=== PATIENT | male | born 1950 | race Hispanic/Latino ===

== ENCOUNTER 2017-06-13 00:03 | Emergency (ER) | payer MEDICARE ==
[~2017-06-13 00:03] MED LIST: DIPH25CA7 PO; ESOM40CA PO; LISI-613 PO; MECL-111 PO; ONDA4TAB10 PO; ONDA4TAB4 PO; TRAM1TAB PO; VIT B; ZOLP5TAB8 PO; [UNRECOGNIZED DRUG - OTHER]
[2017-06-13] MEDS ORDERED: ACETAMINOPHEN 325 MG TAB ONE (07:07)
== END 2017-06-13 07:04 | disposition home or self-care (01) ==
LOC: EDH 00:03
DX: S80.11XA Contusion of right lower leg, initial encounter (principal); S09.8XXA Other specified injuries of head, initial encounter; F10.129 Alcohol abuse with intoxication, unspecified; Z87.891 Personal history of nicotine dependence; Y08.89XA Assault by other specified means, initial encounter; Y93.89 Activity, other specified; Y92.098 Other place in other non-institutional residence as the place of occurrence of the external cause; Y99.8 Other external cause status
CPT/HCPCS: 36415; 70450; 73590; 99285; G0480 ×2

== ENCOUNTER 2017-06-26 21:43 | Emergency (ER) | payer MEDICARE | END 2017-06-26 23:21 | disposition home or self-care (01) | LOC: EDH 21:43 | DX: M79.671 Pain in right foot (principal); I10 Essential (primary) hypertension | CPT/HCPCS: 73620 ==

== ENCOUNTER 2017-07-03 23:11 | Emergency (ER) | payer MEDICARE ==
[2017-07-04] MEDS ORDERED: ACETAMINOPHEN 325 MG TAB ONE (00:22)
[2017-07-04] MEDS ORDERED: ONDANSETRON ODT 4 MG TAB ONE (00:59)
== END 2017-07-04 01:04 | disposition home or self-care (01) ==
LOC: EDH 23:11
DX: M25.552 Pain in left hip (principal); G89.29 Other chronic pain; I10 Essential (primary) hypertension; Z76.5 Malingerer [conscious simulation]

== ENCOUNTER 2017-08-23 14:15 | Emergency (ER) | payer MEDICARE ==
[2017-08-23 15:37] LABS: EOSINOPHILS % (AUTO) 1.4 % (0.0-8.0); HEMATOCRIT 30.1 % (42-54); LYMPHOCYTES % (AUTO) 29.7 % (21.0-51.0); MEAN CORPUSCULAR HEMOGLOBIN 21.5 pg (27.0-33.0); MEAN CORPUSCULAR HGB CONC 31.6 g/dL (32.0-36.0); MEAN CORPUSCULAR VOLUME 67.9 fL (79-99); MONOCYTES % (AUTO) 8.3 % (3.0-13.0); NEUTROPHILS % (AUTO) 59.6 % (40.0-77.0); PLATELET COUNT (AUTO) 294 K/uL (130-400); RED BLOOD CELL COUNT(AUTO) 4.43 MIL/uL (4.50-6.20); RED CELL DISTRIBUTION WIDTH 21.2 % (11.0-15.5); WHITE BLOOD COUNT (AUTO) 5.7 K/uL (4.8-10.8)
[2017-08-23 15:45] LABS: CREATININE 0.8 mg/dL (0.5-1.5); POTASSIUM 3.7 mmol/L (3.5-5.1)
[2017-08-23] MEDS ORDERED: ACETAMINOPHEN 325 MG TAB ONE (16:06)
== END 2017-08-23 16:17 | disposition home or self-care (01) ==
LOC: EDH 14:15
DX: M79.662 Pain in left lower leg (principal); I10 Essential (primary) hypertension; F10.20 Alcohol dependence, uncomplicated
CPT/HCPCS: 36415; 73590; 80048; 85025; 93971

== ENCOUNTER 2017-10-03 02:24 | Emergency (ER) | payer MEDICARE ==
[2017-10-03] MEDS ORDERED: SODIUM CHLORIDE 0.9% 1000ML 1,000 ML IV ONE (02:43)
[2017-10-03] MEDS ORDERED: ONDANSETRON ODT 4 MG TAB ONE (02:43)
[2017-10-03] MEDS ORDERED: THIAMINE HCL 100 MG/ML 2ML VIAL ONE (02:43)
[2017-10-03] MEDS ORDERED: M.V.I. IV [ADULT] 10 ML VIAL IV ONE (02:44)
[2017-10-03] MEDS ORDERED: TRAMADOL HCL 50 MG TABLET ONE (02:53)
== END 2017-10-03 03:30 | disposition home or self-care (01) ==
LOC: EDH 02:24
DX: F10.10 Alcohol abuse, uncomplicated (principal); G89.29 Other chronic pain; M79.604 Pain in right leg; I10 Essential (primary) hypertension; Z98.890 Other specified postprocedural states
CPT/HCPCS: J3411; J7030

== ENCOUNTER 2017-10-19 19:19 | Observation (INO) | payer MEDICARE ==
[~2017-10-19] VITALS: Ht 165.1 cm; Wt 53.5 kg
[2017-10-19] MEDS ORDERED: MECLIZINE HCL 25 MG TABLET ONE (20:28)
[2017-10-19 20:45] LABS: BASOPHILS % (AUTO) 0.4 % (0.0-5.0); HEMATOCRIT 36.7 % (42-54); LYMPHOCYTES % (AUTO) 5.3 % (21.0-51.0); MEAN CORPUSCULAR HEMOGLOBIN 23.1 pg (27.0-33.0); MEAN CORPUSCULAR HGB CONC 32.5 g/dL (32.0-36.0); MEAN CORPUSCULAR VOLUME 70.9 fL (79-99); MONOCYTES % (AUTO) 3.6 % (3.0-13.0); NEUTROPHILS % (AUTO) 90.7 % (40.0-77.0); PLATELET COUNT (AUTO) 361 K/uL (130-400); RED BLOOD CELL COUNT(AUTO) 5.18 MIL/uL (4.50-6.20); RED CELL DISTRIBUTION WIDTH 22.2 % (11.0-15.5); WHITE BLOOD COUNT (AUTO) 9.8 K/uL (4.8-10.8)
[2017-10-19 20:51] LABS: CREATININE 1.4 mg/dL (0.5-1.5); POTASSIUM 3.7 mmol/L (3.5-5.1)
[2017-10-19] MEDS ORDERED: SODIUM CHLORIDE 0.9% 1000ML 1,000 ML IV ONE (21:05)
[2017-10-19 21:19] LABS: CREATINE KINASE MB 1.8 ng/mL (0.5-3.6); CREATINE KINASE, TOTAL 84 U/L (21-232); MYOGLOBIN 71 ng/mL (10-92); TROPONIN I < 0.04 ng/mL (0.00-0.06)
[2017-10-19 21:57] LABS: APPEARANCE,URINE Turbid (CLEAR); BILIRUBIN,URINE Small (NEGATIVE); COLOR,URINE Dark Yellow (YELLOW); GLUCOSE, URINE (UA) TRACE mg/dL (NEGATIVE); KETONES,URINE Trace mg/dL (NEGATIVE); LEUKOCYTE ESTERASE ,URINE Negative (NEGATIVE); NITRATE,URINE Negative (NEGATIVE); OCCULT BLOOD,URINE Negative (NEGATIVE); PROTEIN,URINE POS 1+ (NEGATIVE)
[2017-10-19 22:59] LABS: BACTERIA,URINE None Seen /HPF (None Seen); HYALINE CASTS, URINE 26-50 /LPF (0-1 /LPF); MUCUS,URINE Moderate LPF (None Seen); RBC,URINE None Seen /HPF (0-1); SQUAMOUS EPITHELIAL CELL,UR Few /HPF (0-2); WBC,URINE None Seen /HPF (0-1)
[2017-10-19 23:00] LABS: COARSE GRANULAR CASTS,URINE 0-2 /LPF (None Seen)
[2017-10-20] VITALS (7 sets, daily range): BP systolic 134–192; BP diastolic 71–100
[2017-10-20] MEDS ORDERED: ACETAMINOPHEN 325 MG TAB PO PRN ×3 (00:30→20:15)
[2017-10-20] MEDS ORDERED: ONDANSETRON HCL MDV 20ML 2 MG/ML VIAL IVP PRN (00:45)
[2017-10-20] MEDS ORDERED: MECLIZINE HCL 25 MG TABLET PO SCH (02:15)
[2017-10-20] MEDS: SODIUM CHLORIDE 0.9% 1000ML 1,000 ML IV SCH (04:37)
[2017-10-20 06:09] LABS: HEMATOCRIT 31.3 % (42-54); MEAN CORPUSCULAR HEMOGLOBIN 22.8 pg (27.0-33.0); MEAN CORPUSCULAR HGB CONC 32.2 g/dL (32.0-36.0); MEAN CORPUSCULAR VOLUME 70.9 fL (79-99); PLATELET COUNT (AUTO) 281 K/uL (130-400); RED BLOOD CELL COUNT(AUTO) 4.42 MIL/uL (4.50-6.20); RED CELL DISTRIBUTION WIDTH 21.3 % (11.0-15.5)
[2017-10-20 06:21] LABS: HEMOGLOBIN A1C 5.4 % (4.0-6.0)
[2017-10-20 06:26] LABS: ALBUMIN 3.1 g/dL (3.5-5.0); BILIRUBIN,DIRECT 0.2 mg/dL (0.0-0.3); BILIRUBIN,TOTAL 0.8 mg/dL (0.2-1.0); CREATININE 0.9 mg/dL (0.5-1.5); POTASSIUM 3.6 mmol/L (3.5-5.1); TOTAL PROTEIN, SERUM 6.7 g/dL (6.0-8.3)
[2017-10-20] MEDS: ENOXAPARIN SODIUM 40 MG/0.4 ML SYRINGE SQ SCH (11:35)
[2017-10-20] MEDS: FAMOTIDINE 20MG TAB 20 MG TAB PO SCH ×2 (11:35→20:42)
[2017-10-20] MEDS ORDERED: ONDANSETRON HCL 4 MG/2 ML VIAL IVP PRN (20:15)
[2017-10-20] MEDS ORDERED: MIDODRINE HCL 5 MG TABLET PO SCH (21:00)
[2017-10-21 00:05] VITALS: BP 144/78
[2017-10-21] MEDS: SODIUM CHLORIDE 0.9% 1000ML 1,000 ML IV SCH (00:27)
[2017-10-21 04:00] VITALS: BP 156/82
[2017-10-21 05:57] LABS: BASOPHILS % (AUTO) 1.9 % (0.0-5.0); EOSINOPHILS % (AUTO) 1.1 % (0.0-8.0); HEMATOCRIT 29.6 % (42-54); LYMPHOCYTES % (AUTO) 31.3 % (21.0-51.0); MEAN CORPUSCULAR HEMOGLOBIN 23.7 pg (27.0-33.0); MEAN CORPUSCULAR HGB CONC 33.1 g/dL (32.0-36.0); MEAN CORPUSCULAR VOLUME 71.6 fL (79-99); MONOCYTES % (AUTO) 9.1 % (3.0-13.0); NEUTROPHILS % (AUTO) 56.6 % (40.0-77.0); NUCLEATED RED BLOOD CELLS 0.1 % (0.0-0.19); PLATELET COUNT (AUTO) 268 K/uL (130-400); RED BLOOD CELL COUNT(AUTO) 4.14 MIL/uL (4.50-6.20); WHITE BLOOD COUNT (AUTO) 5.5 K/uL (4.8-10.8)
[2017-10-21 06:08] LABS: CREATININE 0.9 mg/dL (0.5-1.5); POTASSIUM 4.2 mmol/L (3.5-5.1)
[2017-10-21 07:30] VITALS: BP 163/75
[2017-10-21] MEDS: FAMOTIDINE 20MG TAB 20 MG TAB PO SCH (09:26)
[2017-10-21] MEDS: ENOXAPARIN SODIUM 40 MG/0.4 ML SYRINGE SQ SCH (09:27)
== END 2017-10-21 12:25 | disposition home or self-care (01) ==
LOC: EDH 19:19 → EDHIP 19:20 → 3BH 10-20 03:22
PROVIDERS: ADMIT Internal Medicine Nephrology; ATTEND Internal Medicine Nephrology
DX: I95.1 Orthostatic hypotension (principal); R42 Dizziness and giddiness; I10 Essential (primary) hypertension; K25.9 Gastric ulcer, unspecified as acute or chronic, without hemorrhage or perforation; I44.7 Left bundle-branch block, unspecified; F10.20 Alcohol dependence, uncomplicated; W18.39XA Other fall on same level, initial encounter; Y93.89 Activity, other specified; Y92.89 Other specified places as the place of occurrence of the external cause; Y99.8 Other external cause status; Z87.11 Personal history of peptic ulcer disease; Z79.01 Long term (current) use of anticoagulants
CPT/HCPCS: 36415 ×3; 70450; 80048 ×3; 80061; 80076; 81001; 82550; 82553; 83036; 83874; 84484; 85025 ×2; 85027; 93005 ×2; 93306; 96360; 96361 ×2; 96372 ×2; 99285; G0378 ×41; G0480; J1650 ×2; J7030 ×3

== ENCOUNTER 2017-10-23 22:51 | Emergency (ER) | payer MEDICARE | END 2017-10-24 07:03 | disposition home or self-care (01) | LOC: EDH 22:51 | DX: S00.83XA Contusion of other part of head, initial encounter (principal); F10.10 Alcohol abuse, uncomplicated; I10 Essential (primary) hypertension; W18.39XA Other fall on same level, initial encounter; Y93.89 Activity, other specified; Y92.098 Other place in other non-institutional residence as the place of occurrence of the external cause; Y99.8 Other external cause status | CPT/HCPCS: 70450; 72125 ==

== ENCOUNTER 2017-10-24 07:07 | Emergency (ER) | payer MEDICARE ==
[2017-10-24] MEDS ORDERED: IBUPROFEN 600 MG TABLET ONE (07:22)
== END 2017-10-24 07:54 | disposition home or self-care (01) ==
LOC: EDH 07:07
DX: G89.29 Other chronic pain (principal); I10 Essential (primary) hypertension; Z72.0 Tobacco use; M25.50 Pain in unspecified joint
CPT/HCPCS: 99282

== ENCOUNTER 2018-02-24 19:51 | Emergency (ER) | payer MEDICARE ==
[2018-02-24] MEDS ORDERED: HYDROCODONE/ACETAMINOPHEN 5/325 MG TAB ONE (20:11)
[2018-02-24] MEDS ORDERED: ONDANSETRON ODT 4 MG TAB ONE (20:44)
== END 2018-02-25 06:36 | disposition home or self-care (01) ==
LOC: EDH 19:51
DX: S82.035A Nondisplaced transverse fracture of left patella, initial encounter for closed fracture (principal); I10 Essential (primary) hypertension; F10.20 Alcohol dependence, uncomplicated; W18.39XA Other fall on same level, initial encounter; Y93.01 Activity, walking, marching and hiking; Y92.89 Other specified places as the place of occurrence of the external cause; Y99.8 Other external cause status
CPT/HCPCS: 29505; 73562; 73700

== ENCOUNTER 2018-03-11 10:05 | Emergency (ER) | payer MEDICARE ==
[2018-03-11 11:11] LABS: BASOPHILS % (AUTO) 0.4 % (0.0-5.0); EOSINOPHILS % (AUTO) 0.3 % (0.0-8.0); HEMATOCRIT 31.1 % (42-54); LYMPHOCYTES % (AUTO) 15.8 % (21.0-51.0); MEAN CORPUSCULAR HEMOGLOBIN 24.2 pg (27.0-33.0); MEAN CORPUSCULAR HGB CONC 31.8 g/dL (32.0-36.0); MEAN CORPUSCULAR VOLUME 76.2 fL (79-99); MONOCYTES % (AUTO) 6.7 % (3.0-13.0); NEUTROPHILS % (AUTO) 76.8 % (40.0-77.0); PLATELET COUNT (AUTO) 208 K/uL (130-400); RED BLOOD CELL COUNT(AUTO) 4.07 MIL/uL (4.50-6.20); RED CELL DISTRIBUTION WIDTH 20.6 % (11.0-15.5); WHITE BLOOD COUNT (AUTO) 6.1 K/uL (4.8-10.8)
[2018-03-11 11:17] LABS: CREATININE 0.9 mg/dL (0.5-1.5); POTASSIUM 3.6 mmol/L (3.5-5.1)
[2018-03-11 11:22] LABS: BILIRUBIN,TOTAL 0.5 mg/dL (0.2-1.0); TOTAL PROTEIN, SERUM 7.7 g/dL (6.0-8.3)
== END 2018-03-11 12:02 | disposition home or self-care (01) ==
LOC: EDH 10:05
DX: R53.83 Other fatigue (principal); R53.81 Other malaise; R11.10 Vomiting, unspecified; R06.02 Shortness of breath; F10.20 Alcohol dependence, uncomplicated; I10 Essential (primary) hypertension
CPT/HCPCS: 36415; 71045; 80053; 85025

== ENCOUNTER 2018-03-12 07:18 | Emergency (ER) | payer MEDICARE ==
[2018-03-12] MEDS ORDERED: ONDANSETRON ODT 4 MG TAB ONE (09:17)
== END 2018-03-12 09:23 | disposition home or self-care (01) ==
LOC: EDH 07:18
DX: R42 Dizziness and giddiness (principal)

== ENCOUNTER 2018-06-10 20:18 | Emergency (ER) | payer MEDICARE ==
[2018-06-10] MEDS ORDERED: KETOROLAC TROMETHAMINE 30MG/ML ONE (20:48)
[2018-06-10] MEDS ORDERED: ONDANSETRON HCL 4 MG/2 ML VIAL ONE (22:39)
== END 2018-06-10 23:37 | disposition home or self-care (01) ==
LOC: EDH 20:18
DX: S80.02XA Contusion of left knee, initial encounter (principal); S70.02XA Contusion of left hip, initial encounter; I10 Essential (primary) hypertension; Z98.890 Other specified postprocedural states; V02.90XA Pedestrian on foot injured in collision with two- or three-wheeled motor vehicle, unspecified whether traffic or nontraffic accident, initial encounter; Y93.89 Activity, other specified; Y92.410 Unspecified street and highway as the place of occurrence of the external cause; Y99.8 Other external cause status
CPT/HCPCS: 70450; 71250; 73562; 74176; 96374; 96375; 99285; J1885; J2405

== ENCOUNTER 2018-07-17 23:39 | Observation (INO) | payer MEDICARE ==
[~2018-07-17] VITALS: Ht 165.1 cm; Wt 52.2 kg
[2018-07-17] MEDS ORDERED: ONDANSETRON HCL 4 MG/2 ML VIAL ONE (23:45)
[2018-07-18 00:01] LABS: BASOPHILS % (AUTO) 0.9 % (0.0-5.0); EOSINOPHILS % (AUTO) 0.8 % (0.0-8.0); LYMPHOCYTES % (AUTO) 33.5 % (21.0-51.0); MEAN CORPUSCULAR HEMOGLOBIN 26.4 pg (27.0-33.0); MEAN CORPUSCULAR HGB CONC 32.2 g/dL (32.0-36.0); MEAN CORPUSCULAR VOLUME 81.9 fL (79-99); MONOCYTES % (AUTO) 7.4 % (3.0-13.0); NEUTROPHILS % (AUTO) 57.4 % (40.0-77.0); PLATELET COUNT (AUTO) 265 K/uL (130-400); RED BLOOD CELL COUNT(AUTO) 5.01 MIL/uL (4.50-6.20); RED CELL DISTRIBUTION WIDTH 16.8 % (11.0-15.5); WHITE BLOOD COUNT (AUTO) 7.2 K/uL (4.8-10.8)
[2018-07-18 00:20] LABS: INR 0.91 (0.85-1.15); PROTHROMBIN TIME 9.6 SEC (9.6-11.6)
[2018-07-18 00:28] LABS: CREATININE 0.8 mg/dL (0.5-1.5); POTASSIUM 4.6 mmol/L (3.5-5.1)
[2018-07-18 00:33] LABS: ALBUMIN 4.2 g/dL (3.5-5.0); BILIRUBIN,TOTAL 0.5 mg/dL (0.2-1.0); TOTAL PROTEIN, SERUM 8.2 g/dL (6.0-8.3)
[2018-07-18] MEDS ORDERED: THIAMINE HCL 100 MG/ML 2ML VIAL ONE (00:35)
[2018-07-18] MEDS ORDERED: SODIUM CHLORIDE 0.9% 1000ML 1,000 ML IV ONE (00:35)
[2018-07-18] MEDS ORDERED: OCTREOTIDE ACETATE 200 MCG/ML 5 ML VIAL ONE (00:37)
[2018-07-18] MEDS ORDERED: LACTATED RINGERS 1000ML 1,000 ML IV ONE ×2 (03:50→09:01)
[2018-07-18 06:06] LABS: HEMATOCRIT 35.4 % (42-54)
[2018-07-18] MEDS: LACTATED RINGERS 1000ML 1,000 ML IV SCH ×2 (06:15→20:14)
[2018-07-18] MEDS ORDERED: PANTOPRAZOLE SODIUM 80 MG in NS 100ML IVP SCH (06:15)
[2018-07-18] MEDS ORDERED: METOPROLOL TARTRATE 25 MG TAB ONE (08:08)
[2018-07-18] MEDS ORDERED: HYDROCHLOROTHIAZIDE 25 MG TABLET ONE (08:08)
[2018-07-18] MEDS ORDERED: ASPIRIN 325 MG TABLET ONE (08:08)
[2018-07-18] MEDS ORDERED: LOSARTAN 50 MG TABLET ONE (08:09)
[2018-07-18] MEDS ORDERED: FAMOTIDINE/PF 20 MG/2 ML VIAL IV ONE (08:09)
--- NOTE | 2018-07-18 09:43 | NUR ---
FARHAN Vernon met with pt who states he lives with [place] [phone]. Pt states he is independent, rides bike everywhere, has provider daily, but does not know what agency or # hours he gets. pt has walker and shower chair, no HH. Pt plans to return home at [place] Addendum: 07/18/18 at 0946 by GRANT VARELA Amended: Links added.
[2018-07-18] MEDS ORDERED: LABETALOL 20 MG/4 ML DISP.SYRIN IV PRN (12:45)
[2018-07-18] MEDS: LISINOPRIL 10 MG TABLET PO SCH (12:45)
[2018-07-18 13:13] LABS: HEMATOCRIT 40.4 % (42-54); MEAN CORPUSCULAR HEMOGLOBIN 26.6 pg (27.0-33.0); MEAN CORPUSCULAR HGB CONC 32.1 g/dL (32.0-36.0); NUCLEATED RED BLOOD CELLS 0.1 % (0.0-0.19); PLATELET COUNT (AUTO) 255 K/uL (130-400); RED BLOOD CELL COUNT(AUTO) 4.86 MIL/uL (4.50-6.20); RED CELL DISTRIBUTION WIDTH 17.1 % (11.0-15.5); WHITE BLOOD COUNT (AUTO) 5.9 K/uL (4.8-10.8)
[2018-07-18 13:21] LABS: CREATININE 0.9 mg/dL (0.5-1.5); POTASSIUM 4.1 mmol/L (3.5-5.1)
[2018-07-18] MEDS ORDERED: LISINOPRIL 5 MG TABLET ONE (14:14)
[2018-07-18] MEDS ORDERED: LABETALOL 20 MG/4 ML DISP.SYRIN IV ONE (15:37)
[2018-07-18] MEDS ORDERED: HYDRALAZINE HCL 20 MG/ML VIAL ONE (17:54)
[2018-07-18 19:48] VITALS: BP 165/83
[2018-07-18 23:00] VITALS: BP 166/78
--- NOTE | 2018-07-19 00:35 | NUR ---
HEART RATE LOW Tele monitor called to report that patient's heart rate is in the 30's. Patient resting and sleeping in bed. No distress or shortness of breath. Patient states no pain or chest pain at this time; patient says he is feeling fine. Asked patient if he has heart problems and states no. Current vital signs are: BP= 166/78, HR= 47, R= 16, O2Sat= 97% in room air, and Temp.= 97.6 F. Called MD vocational education professional; Darshana Mcbride NP returned page. Informed CHILD AND FAMILY THERAPIST of patient's heart rate in the 30s but having elevated blood pressures. Reported patient's current vital signs and what was given in ER. Obtained orders for patient to be on C-Pap and to discontinue the prn medication labetalol. Will follow orders and continue to monitor patient.
[2018-07-19 03:00] VITALS: BP 166/86
[2018-07-19 05:37] LABS: MEAN CORPUSCULAR HEMOGLOBIN 26.9 pg (27.0-33.0); MEAN CORPUSCULAR HGB CONC 32.7 g/dL (32.0-36.0); MEAN CORPUSCULAR VOLUME 82.4 fL (79-99); PLATELET COUNT (AUTO) 243 K/uL (130-400); RED BLOOD CELL COUNT(AUTO) 4.25 MIL/uL (4.50-6.20); RED CELL DISTRIBUTION WIDTH 17.2 % (11.0-15.5); WHITE BLOOD COUNT (AUTO) 4.9 K/uL (4.8-10.8)
[2018-07-19 08:00] VITALS: BP 168/96
[2018-07-19] MEDS: LISINOPRIL 10 MG TABLET PO SCH (08:56)
[2018-07-19] MEDS ORDERED: PANTOPRAZOLE SODIUM 40 MG TABLET.DR PO SCH (09:00)
--- NOTE | 2018-07-19 10:00 | NUR ---
HEART RATE PATIENT HAS BEEN IN THE UPPER 30'S AND LOW 40'S THROUGHOUT THE MORNING, TELE MONITOR REPORTS JUNCTIONAL RHYTHM AND SINUS BRADYCARDIA. MD IS AWARE OF PATIENT STATUS.
[2018-07-19 10:58] LABS: HEMATOCRIT 35.6 % (42-54)
[2018-07-19 11:10] LABS: ABG BASE EXCESS 2.2 mmol/L (-2.0-3.0); ABG HCO3 26.7 mmol/L (21.0-28.0); ABG OXYGEN SATURATION 97.8 % (95.0-99.0); ABG PCO2 41 mmHg (35-48)
[2018-07-19 12:00] VITALS: BP 123/74
--- NOTE | 2018-07-19 13:35 | NUR ---
BENCHMARK ANGELO CARMICHAEL PA-C IN TO SEE PATIENT. NEW ORDERS RECEIVED.
[2018-07-19 16:00] VITALS: BP 154/73
--- NOTE | 2018-07-19 18:15 | NUR ---
AMA PATIENT HAS DECIDED TO GO HOME AGAINST MEDICAL ADVICE. HE STATES THAT HE HAS BEEN HERE TOO LONG AND CANNOT PAY HIS BILL. HE WAS ENCOURAGED TO STAY UNTIL HE WAS SEEN BY HIS ADMITTING MD TOMORROW MORNING, BUT HE INSISTED ON LEAVING. ALL RISKS WERE EXPLAINED INCLUDING THE RISK OF . DR. AL WAS NOTIFIED. IV WAS REMOVED WITH TIP INTACT. DIRECT PRESSURE WAS APPLIED UNTIL BLEEDING CONTROLLED THEN SITE WAS COVERED WITH GAUZE AND SECURED WITH TAPE.
== END 2018-07-19 19:30 | disposition left against medical advice (07) ==
LOC: EDH 23:39 → EDHIP 07-18 02:00 → 3AH 07-18 19:26
PROVIDERS: ADMIT Internal Medicine Critical Care Medicine; ATTEND Internal Medicine Critical Care Medicine
DX: K92.0 Hematemesis (principal); I10 Essential (primary) hypertension; R00.1 Bradycardia, unspecified; I44.7 Left bundle-branch block, unspecified; F10.10 Alcohol abuse, uncomplicated; Z79.899 Other long term (current) drug therapy; Z96.659 Presence of unspecified artificial knee joint
CPT/HCPCS: 36415 ×3; 36600; 71045; 80048; 80053; 82803; 84484; 85014 ×3; 85018 ×3; 85025; 85027 ×2; 85610; 85730; 86850; 86900; 86901; 93005; 94660; 96360; 96361 ×2; 99291; G0378 ×41; J0360; J2354; J2405; J3411; J3490; J7030; J7120 ×5

== ENCOUNTER 2018-08-22 22:43 | Emergency (ER) | payer MEDICARE ==
[2018-08-22] MEDS ORDERED: THIAMINE HCL 100 MG/ML 2ML VIAL ONE (23:17)
[2018-08-22] MEDS ORDERED: ONDANSETRON HCL 4 MG/2 ML VIAL ONE (23:17)
[2018-08-22 23:20] LABS: APPEARANCE,URINE Clear (CLEAR); BILIRUBIN,URINE Negative (NEGATIVE); COLOR,URINE Yellow (YELLOW); GLUCOSE, URINE (UA) Negative (NEGATIVE); KETONES,URINE Negative (NEGATIVE); LEUKOCYTE ESTERASE ,URINE Negative (NEGATIVE); NITRATE,URINE Negative (NEGATIVE); OCCULT BLOOD,URINE Negative (NEGATIVE); PROTEIN,URINE Negative (NEGATIVE); UROBILINOGEN,URINE 0.2 mg/dL (0.2-1.0)
[2018-08-22 23:22] LABS: EOSINOPHILS % (AUTO) 0.5 % (0.0-8.0); HEMATOCRIT 38.6 % (42-54); LYMPHOCYTES % (AUTO) 26.2 % (21.0-51.0); MEAN CORPUSCULAR HGB CONC 32.3 g/dL (32.0-36.0); MEAN CORPUSCULAR VOLUME 83.7 fL (79-99); MONOCYTES % (AUTO) 6.1 % (3.0-13.0); NEUTROPHILS % (AUTO) 66.2 % (40.0-77.0); PLATELET COUNT (AUTO) 262 K/uL (130-400); RED CELL DISTRIBUTION WIDTH 19.2 % (11.0-15.5); WHITE BLOOD COUNT (AUTO) 6.9 K/uL (4.8-10.8)
[2018-08-22 23:33] LABS: CREATININE 0.9 mg/dL (0.5-1.5); POTASSIUM 3.5 mmol/L (3.5-5.1)
[2018-08-22 23:34] LABS: INR 0.92 (0.85-1.15); PARTIAL THROMBOPLASTIN TIME 25.5 SEC (26.3-35.5); PROTHROMBIN TIME 9.7 SEC (9.6-11.6)
[2018-08-22 23:37] LABS: ALBUMIN 4.1 g/dL (3.5-5.0); BILIRUBIN,TOTAL 0.5 mg/dL (0.2-1.0); TOTAL PROTEIN, SERUM 8.2 g/dL (6.0-8.3)
[2018-08-22 23:38] LABS: AMYLASE 93 U/L (25-115); LIPASE 312 U/L (114-286)
== END 2018-08-23 05:56 | disposition home or self-care (01) ==
LOC: EDH 22:43
DX: S50.312A Abrasion of left elbow, initial encounter (principal); K85.90 Acute pancreatitis without necrosis or infection, unspecified; F10.10 Alcohol abuse, uncomplicated; I10 Essential (primary) hypertension; Z98.890 Other specified postprocedural states; V19.9XXA Pedal cyclist (driver) (passenger) injured in unspecified traffic accident, initial encounter; Y93.89 Activity, other specified; Y92.89 Other specified places as the place of occurrence of the external cause; Y99.8 Other external cause status
CPT/HCPCS: 36415; 71045; 73070; 80053; 81003; 82150; 82550; 83690; 84484; 85025; 85610; 85730; 93005; 96365; 96375; 99285; J2405; J3411

== ENCOUNTER 2018-09-02 23:29 | Emergency (ER) | payer MEDICARE ==
[2018-09-03] MEDS ORDERED: ONDANSETRON HCL 4 MG/2 ML VIAL ONE (00:05)
== END 2018-09-03 02:09 | disposition home or self-care (01) ==
LOC: EDH 23:29
DX: S06.0X9A Concussion with loss of consciousness of unspecified duration, initial encounter (principal); S80.02XA Contusion of left knee, initial encounter; I10 Essential (primary) hypertension; W18.39XA Other fall on same level, initial encounter; Y93.89 Activity, other specified; Y92.89 Other specified places as the place of occurrence of the external cause; Y99.8 Other external cause status
CPT/HCPCS: 70450; 73562; 73590; 73630; 99284; J2405

== ENCOUNTER 2018-09-11 05:46 | Emergency (ER) | payer MEDICARE ==
[2018-09-11 07:35] LABS: BASOPHILS % (AUTO) 0.9 % (0.0-5.0); EOSINOPHILS % (AUTO) 0.6 % (0.0-8.0); HEMATOCRIT 38.5 % (42-54); LYMPHOCYTES % (AUTO) 27.7 % (21.0-51.0); MEAN CORPUSCULAR HGB CONC 32.1 g/dL (32.0-36.0); MEAN CORPUSCULAR VOLUME 83.9 fL (79-99); MONOCYTES % (AUTO) 7.6 % (3.0-13.0); NEUTROPHILS % (AUTO) 63.2 % (40.0-77.0); NUCLEATED RED BLOOD CELLS 0.1 % (0.0-0.19); PLATELET COUNT (AUTO) 262 K/uL (130-400); RED BLOOD CELL COUNT(AUTO) 4.58 MIL/uL (4.50-6.20); RED CELL DISTRIBUTION WIDTH 18.8 % (11.0-15.5); WHITE BLOOD COUNT (AUTO) 4.8 K/uL (4.8-10.8)
[2018-09-11 07:49] LABS: CREATININE 0.9 mg/dL (0.5-1.5); POTASSIUM 3.5 mmol/L (3.5-5.1)
[2018-09-11 07:54] LABS: ALBUMIN 3.8 g/dL (3.5-5.0); BILIRUBIN,TOTAL 0.3 mg/dL (0.2-1.0); INR 0.93 (0.85-1.15); PARTIAL THROMBOPLASTIN TIME 24.7 SEC (26.3-35.5); PROTHROMBIN TIME 9.8 SEC (9.6-11.6); TOTAL PROTEIN, SERUM 7.8 g/dL (6.0-8.3)
== END 2018-09-11 13:29 | disposition home or self-care (01) ==
LOC: EDH 05:46
DX: R07.89 Other chest pain (principal); I10 Essential (primary) hypertension; Z72.0 Tobacco use
CPT/HCPCS: 36415; 71045; 80053; 84484; 85025; 85610; 85730; 93005; 99285; G0480

== ENCOUNTER 2018-09-22 04:28 | Emergency (ER) | payer MEDICARE ==
[2018-09-22] MEDS ORDERED: ACETAMINOPHEN 325 MG TAB ONE (05:09)
[2018-09-22 05:29] LABS: BASOPHILS % (AUTO) 0.5 % (0.0-5.0); EOSINOPHILS % (AUTO) 0.2 % (0.0-8.0); HEMATOCRIT 37.1 % (42-54); LYMPHOCYTES % (AUTO) 11.2 % (21.0-51.0); MEAN CORPUSCULAR HEMOGLOBIN 27.3 pg (27.0-33.0); MEAN CORPUSCULAR HGB CONC 32.6 g/dL (32.0-36.0); MEAN CORPUSCULAR VOLUME 83.8 fL (79-99); NEUTROPHILS % (AUTO) 80.1 % (40.0-77.0); PLATELET COUNT (AUTO) 220 K/uL (130-400); RED BLOOD CELL COUNT(AUTO) 4.42 MIL/uL (4.50-6.20); RED CELL DISTRIBUTION WIDTH 17.9 % (11.0-15.5); WHITE BLOOD COUNT (AUTO) 10.6 K/uL (4.8-10.8)
[2018-09-22 05:36] LABS: CREATININE 0.8 mg/dL (0.5-1.5); POTASSIUM 3.6 mmol/L (3.5-5.1)
== END 2018-09-22 07:08 | disposition home or self-care (01) ==
LOC: EDH 04:28
DX: S42.022D Displaced fracture of shaft of left clavicle, subsequent encounter for fracture with routine healing (principal); X58.XXXD Exposure to other specified factors, subsequent encounter; I10 Essential (primary) hypertension; F10.20 Alcohol dependence, uncomplicated; Y90.9 Presence of alcohol in blood, level not specified; Z72.0 Tobacco use
CPT/HCPCS: 36415; 73000; 73070; 80048; 85025

== ENCOUNTER 2019-02-03 21:36 | Emergency (ER) | payer MEDICARE | END 2019-02-03 22:27 | disposition home or self-care (01) | LOC: EDH 21:36 | DX: G89.29 Other chronic pain (principal); M54.2 Cervicalgia; I10 Essential (primary) hypertension; F10.20 Alcohol dependence, uncomplicated ==

== ENCOUNTER 2019-02-22 22:03 | Emergency (ER) | payer MEDICARE ==
[2019-02-22] MEDS ORDERED: SODIUM CHLORIDE 0.9% 1000ML 2,000 ML IV ONE (23:32)
[2019-02-22 23:43] LABS: AMPHET/METH SCREEN,URINE NEGATIVE (NEGATIVE); BARBITURATE SCREEN, URINE NEGATIVE (NEGATIVE); BENZODIAZEPINES SCREEN,URINE NEGATIVE (NEGATIVE); CANNABINOID SCREEN,URINE NEGATIVE (NEGATIVE); COCAINE SCREEN,URINE NEGATIVE (NEGATIVE); OPIATE SCREEN,URINE NEGATIVE (NEGATIVE); PHENCYCLIDINE SCREEN,URINE NEGATIVE (NEGATIVE)
== END 2019-02-23 00:27 | disposition home or self-care (01) ==
LOC: EDH 22:03
DX: F10.229 Alcohol dependence with intoxication, unspecified (principal); M54.2 Cervicalgia; R51 Headache; I10 Essential (primary) hypertension
CPT/HCPCS: 36415; 70450; 80305; 82948; 99285; G0480; J7030

== ENCOUNTER 2019-03-07 23:29 | Emergency (ER) | payer MEDICARE | END 2019-03-08 08:14 | disposition home or self-care (01) | LOC: EDH 23:29 | DX: S00.03XA Contusion of scalp, initial encounter (principal); F10.20 Alcohol dependence, uncomplicated; Y90.1 Blood alcohol level of 20-39 mg/100 ml; I10 Essential (primary) hypertension; Z72.0 Tobacco use; W22.8XXA Striking against or struck by other objects, initial encounter; Y93.89 Activity, other specified; Y92.89 Other specified places as the place of occurrence of the external cause; Y99.8 Other external cause status | CPT/HCPCS: 36415; 70450; 99285; G0480 ==

== ENCOUNTER 2019-04-19 14:19 | Emergency (ER) | payer MEDICARE ==
[2019-04-19] MEDS ORDERED: OCTYL 2-CYANOACRYLATE 1 EACH TP ONE (14:46)
[2019-04-19] MEDS ORDERED: TETANUS/DIPHTHERIA TOXOID [ADULT] 0.5 ML VIAL IM ONE (14:53)
[2019-04-19] MEDS ORDERED: ACETAMINOPHEN 325 MG TAB ONE (14:53)
== END 2019-04-19 15:10 | disposition home or self-care (01) ==
LOC: EDH 14:19
DX: S61.012A Laceration without foreign body of left thumb without damage to nail, initial encounter (principal); I10 Essential (primary) hypertension; Z98.890 Other specified postprocedural states; X58.XXXA Exposure to other specified factors, initial encounter; Y93.89 Activity, other specified; Y92.098 Other place in other non-institutional residence as the place of occurrence of the external cause; Y99.8 Other external cause status
CPT/HCPCS: 12001; 90471; 90714

== ENCOUNTER 2019-04-29 04:00 | Emergency (ER) | payer MEDICARE ==
[2019-04-29] MEDS ORDERED: TETANUS/DIPHTHERIA TOXOID [ADULT] 0.5 ML VIAL IM ONE (05:43)
[2019-04-29] MEDS ORDERED: OCTYL 2-CYANOACRYLATE 1 EACH TP ONE (05:55)
== END 2019-04-29 07:18 | disposition home or self-care (01) ==
LOC: EDH 04:00
DX: S01.01XA Laceration without foreign body of scalp, initial encounter (principal); S09.90XA Unspecified injury of head, initial encounter; I10 Essential (primary) hypertension; Z98.890 Other specified postprocedural states; X58.XXXA Exposure to other specified factors, initial encounter; Y93.89 Activity, other specified; Y92.098 Other place in other non-institutional residence as the place of occurrence of the external cause; Y99.8 Other external cause status
CPT/HCPCS: 12031; 12032; 12051; 70450; 90471; 90714

== ENCOUNTER 2019-07-10 22:24 | Emergency (ER) | payer MEDICARE ==
[2019-07-10] MEDS ORDERED: FLUORESCEIN SODIUM 1 STRIP STRIP ONE (22:36)
[2019-07-10] MEDS ORDERED: TETRACAINE HCL 0.5% 4 ML OPHTH SOLN ONE (22:36)
[2019-07-10] MEDS ORDERED: ERYTHROMYCIN BASE 0.5% OPHTH OINT 1 GM TUBE ONE (22:54)
== END 2019-07-10 23:01 | disposition home or self-care (01) ==
LOC: EDH 22:24
DX: S05.02XA Injury of conjunctiva and corneal abrasion without foreign body, left eye, initial encounter (principal); I10 Essential (primary) hypertension; X58.XXXA Exposure to other specified factors, initial encounter; Y93.89 Activity, other specified; Y92.89 Other specified places as the place of occurrence of the external cause; Y99.8 Other external cause status

== ENCOUNTER → 2019-10-18 | Emergency (ER) | payer MEDICARE ==
[~2019-10-18] MED LIST changes: -DIPH25CA7 PO; -ESOM40CA PO; +FAMOTIDINE/PF 20 MG/2 ML VIAL IV ONE; -LISI-613 PO; -MECL-111 PO; -ONDA4TAB10 PO; -ONDA4TAB4 PO; +SODIUM CHLORIDE 0.9% 1000ML 1,000 ML IV ONE; -TRAM1TAB PO; -VIT B; -ZOLP5TAB8 PO; -[UNRECOGNIZED DRUG - OTHER]
[2019-10-18 20:44] LABS: BASOPHILS % (AUTO) 1.2 % (0.0-5.0); EOSINOPHILS % (AUTO) 1.2 % (0.0-8.0); HEMATOCRIT 31.1 % (42-54); LYMPHOCYTES % (AUTO) 33.8 % (21.0-51.0); MEAN CORPUSCULAR HEMOGLOBIN 24.3 pg (27.0-33.0); MEAN CORPUSCULAR HGB CONC 31.5 g/dL (32.0-36.0); MONOCYTES % (AUTO) 7.9 % (3.0-13.0); NEUTROPHILS % (AUTO) 55.9 % (40.0-77.0); PLATELET COUNT (AUTO) 227 K/uL (130-400); RED BLOOD CELL COUNT(AUTO) 4.04 MIL/uL (4.50-6.20); RED CELL DISTRIBUTION WIDTH 17.4 % (11.0-15.5); WHITE BLOOD COUNT (AUTO) 4.3 K/uL (4.8-10.8)
[2019-10-18 20:49] LABS: POTASSIUM 3.5 mmol/L (3.5-5.1)
[2019-10-18 20:54] LABS: ALBUMIN 3.5 g/dL (3.5-5.0); BILIRUBIN,TOTAL 0.3 mg/dL (0.2-1.0); TOTAL PROTEIN, SERUM 7.1 g/dL (6.0-8.3)
[2019-10-18 20:55] LABS: INR 0.92 (0.85-1.15); PARTIAL THROMBOPLASTIN TIME 23.9 SEC (26.3-35.5)
[2019-10-18 21:20] LABS: APPEARANCE,URINE Clear (CLEAR); BILIRUBIN,URINE Negative (NEGATIVE); COLOR,URINE Yellow (YELLOW); GLUCOSE, URINE (UA) Negative (NEGATIVE); KETONES,URINE Negative (NEGATIVE); LEUKOCYTE ESTERASE ,URINE Negative (NEGATIVE); NITRATE,URINE Negative (NEGATIVE); OCCULT BLOOD,URINE Negative (NEGATIVE); PROTEIN,URINE Negative (NEGATIVE); UROBILINOGEN,URINE 0.2 mg/dL (0.2-1.0)
[2019-10-18 21:27] LABS: AMPHET/METH SCREEN,URINE NEGATIVE (NEGATIVE); BARBITURATE SCREEN, URINE NEGATIVE (NEGATIVE); BENZODIAZEPINES SCREEN,URINE NEGATIVE (NEGATIVE); CANNABINOID SCREEN,URINE NEGATIVE (NEGATIVE); COCAINE SCREEN,URINE NEGATIVE (NEGATIVE); OPIATE SCREEN,URINE NEGATIVE (NEGATIVE); PHENCYCLIDINE SCREEN,URINE NEGATIVE (NEGATIVE)
== END ==
LOC: EDH 20:15
DX: F10.129 Alcohol abuse with intoxication, unspecified (principal); K29.70 Gastritis, unspecified, without bleeding; D64.9 Anemia, unspecified; I10 Essential (primary) hypertension; Z98.890 Other specified postprocedural states; R41.82 Altered mental status, unspecified; M47.812 Spondylosis without myelopathy or radiculopathy, cervical region
CPT/HCPCS: 36415; 70450; 71045; 72125; 80053; 80305; 81003; 82550; 84484; 85025; 85610; 85730; 93005; 96361; 96374; 99285; G0480; J3490; J7030

== ENCOUNTER 2020-01-08 18:18 | Emergency (ER) | payer MEDICARE | END 2020-01-08 19:25 | disposition home or self-care (01) | LOC: EDH 18:18 | DX: S20.229A Contusion of unspecified back wall of thorax, initial encounter (principal); I10 Essential (primary) hypertension; W51.XXXA Accidental striking against or bumped into by another person, initial encounter; Y93.89 Activity, other specified; Y92.89 Other specified places as the place of occurrence of the external cause; Y99.8 Other external cause status ==

== ENCOUNTER 2020-09-17 23:59 | Emergency (ER) | payer MEDICARE | END 2020-09-18 01:42 | disposition home or self-care (01) | LOC: EDH 23:59 | DX: G89.29 Other chronic pain (principal); M25.562 Pain in left knee; M19.90 Unspecified osteoarthritis, unspecified site; Z20.822 Contact with and (suspected) exposure to COVID-19; I10 Essential (primary) hypertension; F10.20 Alcohol dependence, uncomplicated; Z98.890 Other specified postprocedural states | CPT/HCPCS: 87426 ==

== ENCOUNTER 2020-11-26 19:40 | Emergency (ER) | payer MEDICARE ==
[~2020-11-26] VITALS: Ht 165.1 cm; Wt 59.0 kg
[2020-11-26 19:50] VITALS: BP 128/73
[2020-11-26 20:24] LABS: HEMATOCRIT 34.2 % (42-54); MEAN CORPUSCULAR HEMOGLOBIN 27.4 pg (27.0-33.0); MEAN CORPUSCULAR HGB CONC 32.5 g/dL (32.0-36.0); MEAN CORPUSCULAR VOLUME 84.4 fL (79-99); PLATELET COUNT (AUTO) 281 K/uL (130-400); RED BLOOD CELL COUNT(AUTO) 4.05 MIL/uL (4.50-6.20); RED CELL DISTRIBUTION WIDTH 15.7 % (11.0-15.5); WHITE BLOOD COUNT (AUTO) 5.2 K/uL (4.8-10.8)
[2020-11-26] MEDS ORDERED: ONDANSETRON 4MG INJ IVP ONE (20:30)
[2020-11-26] MEDS ORDERED: 0.9%NACL 1000ML 1,000 ML IV ONE ×4 (20:30→23:34)
[2020-11-26 20:37] LABS: CREATININE 0.9 mg/dL (0.5-1.5); POTASSIUM 3.5 mmol/L (3.5-5.1)
[2020-11-26 20:41] LABS: APPEARANCE,URINE Clear (CLEAR); BILIRUBIN,URINE Negative (NEGATIVE); COLOR,URINE Yellow (YELLOW); GLUCOSE, URINE (UA) Negative (NEGATIVE); KETONES,URINE Negative (NEGATIVE); LEUKOCYTE ESTERASE ,URINE Negative (NEGATIVE); NITRATE,URINE Negative (NEGATIVE); OCCULT BLOOD,URINE Negative (NEGATIVE); PH,URINE 6.5 (5.0-8.0); PROTEIN,URINE Negative (NEGATIVE); UROBILINOGEN,URINE 0.2 mg/dL (0.2-1.0)
[2020-11-26 20:42] LABS: ALBUMIN 3.7 g/dL (3.5-5.0); BILIRUBIN,TOTAL 0.5 mg/dL (0.2-1.0); TOTAL PROTEIN, SERUM 7.5 g/dL (6.0-8.3)
[2020-11-26 20:47] LABS: B-TYPE NATRIURETIC PEPTIDE 59 pg/mL (0-100)
[2020-11-26 21:59] LABS: BASOPHILS % (MANUAL) 1 % (0-2); EOSINOPHILS % (MANUAL) 3 % (1-6); LYMPHOCYTES % (MANUAL) 41 % (22-44); MONOCYTES % (MANUAL) 3 % (2-9); SEGMENTED NEUTROPHILS % 52 % (40-70)
[2020-11-26 22:00] LABS: MAN.DIFF COMMENT-IMPRESSION MANUAL DIFFERENTIAL; PLATELET MORPHOLOGY COMMENT ADEQUATE
[2020-11-26 23:28] LABS: AMPHET/METH SCREEN,URINE NEGATIVE (NEGATIVE); BARBITURATE SCREEN, URINE NEGATIVE (NEGATIVE); BENZODIAZEPINES SCREEN,URINE NEGATIVE (NEGATIVE); CANNABINOID SCREEN,URINE NEGATIVE (NEGATIVE); COCAINE SCREEN,URINE NEGATIVE (NEGATIVE); OPIATE SCREEN,URINE NEGATIVE (NEGATIVE); PHENCYCLIDINE SCREEN,URINE NEGATIVE (NEGATIVE)
[2020-11-26 23:56] VITALS: BP 132/90
[2020-11-27 01:47] VITALS: BP 125/76
== END 2020-11-27 02:16 | disposition home or self-care (01) ==
LOC: EDH 19:40
DX: T67.5XXA Heat exhaustion, unspecified, initial encounter (principal); E86.9 Volume depletion, unspecified; I10 Essential (primary) hypertension; F10.229 Alcohol dependence with intoxication, unspecified; Z95.0 Presence of cardiac pacemaker; X58.XXXA Exposure to other specified factors, initial encounter; Y93.89 Activity, other specified; Y92.89 Other specified places as the place of occurrence of the external cause; Y99.8 Other external cause status; Y90.6 Blood alcohol level of 120-199 mg/100 ml
CPT/HCPCS: 36415; 71045; 80053; 80305; 81003; 82140; 82550; 83605; 83690; 83880; 84484; 85025; 93005; 96361; 96374; 99285; J2405; J7030 ×2

== ENCOUNTER 2021-01-06 12:22 | Emergency (ER) | payer MEDICARE ==
[~2021-01-06] VITALS: Ht 165.1 cm; Wt 54.4 kg
[2021-01-06 12:52] VITALS: BP 117/66
[2021-01-06] MEDS ORDERED: FLUT16H NASAL (15:16)
[2021-01-06 15:28] VITALS: BP 134/70
== END 2021-01-06 15:28 | disposition home or self-care (01) ==
LOC: EDH 12:22
DX: R05 Cough (principal); J34.89 Other specified disorders of nose and nasal sinuses; Z20.822 Contact with and (suspected) exposure to COVID-19; I10 Essential (primary) hypertension; Z95.0 Presence of cardiac pacemaker
CPT/HCPCS: 71045; 87635; 87804 ×2; 99284; C9803

== ENCOUNTER 2021-01-19 23:00 | Emergency (ER) | payer MEDICARE ==
[~2021-01-19] VITALS: Ht 165.1 cm; Wt 59.0 kg
[~2021-01-19 23:00] MED LIST changes: -FAMOTIDINE/PF 20 MG/2 ML VIAL IV ONE; +FLUT16H NASAL; -SODIUM CHLORIDE 0.9% 1000ML 1,000 ML IV ONE
[2021-01-19 23:50] VITALS: BP 168/83
[2021-01-20] MEDS ORDERED: MAG/ALUM/SIMETH 30 ML UDCUP PO ONE (00:30)
[2021-01-20 01:28] LABS: BASOPHILS % (AUTO) 1.3 % (0.0-5.0); EOSINOPHILS % (AUTO) 1.1 % (0.0-8.0); HEMATOCRIT 39.4 % (42-54); LYMPHOCYTES % (AUTO) 23.5 % (21.0-51.0); MEAN CORPUSCULAR HEMOGLOBIN 26.7 pg (27.0-33.0); MEAN CORPUSCULAR HGB CONC 32.2 g/dL (32.0-36.0); MEAN CORPUSCULAR VOLUME 82.9 fL (79-99); MONOCYTES % (AUTO) 6.7 % (3.0-13.0); PLATELET COUNT (AUTO) 291 K/uL (130-400); RED BLOOD CELL COUNT(AUTO) 4.75 MIL/uL (4.50-6.20); RED CELL DISTRIBUTION WIDTH 15.4 % (11.0-15.5); WHITE BLOOD COUNT (AUTO) 5.4 K/uL (4.8-10.8)
[2021-01-20 01:34] LABS: CREATININE 0.9 mg/dL (0.5-1.5); POTASSIUM 3.5 mmol/L (3.5-5.1)
[2021-01-20 01:37] LABS: ALBUMIN 3.9 g/dL (3.5-5.0); BILIRUBIN,TOTAL 0.5 mg/dL (0.2-1.0); MAGNESIUM 2.1 mg/dL (1.80-2.40); TOTAL PROTEIN, SERUM 8.2 g/dL (6.0-8.3)
[2021-01-20 01:41] VITALS: BP 159/85
[2021-01-20 01:49] LABS: B-TYPE NATRIURETIC PEPTIDE 85 pg/mL (0-100)
[2021-01-20] MEDS ORDERED: PANT20TA PO (03:33)
[2021-01-20 03:39] VITALS: BP 158/81
== END 2021-01-20 03:44 | disposition home or self-care (01) ==
LOC: EDH 23:00
DX: K21.9 Gastro-esophageal reflux disease without esophagitis (principal); I10 Essential (primary) hypertension; F10.20 Alcohol dependence, uncomplicated; Z95.0 Presence of cardiac pacemaker
CPT/HCPCS: 36415; 71045; 80053; 82550; 83690; 83735; 83880; 84484; 85025; 93005

== ENCOUNTER 2021-06-12 18:07 | Emergency (ER) | payer MEDICARE ==
[~2021-06-12 18:07] MED LIST changes: +PANT20TA PO
[2021-06-12 18:09] VITALS: BP 178/90
== END 2021-06-12 18:26 | disposition left against medical advice (07) ==
LOC: EDH 18:07
DX: M54.9 Dorsalgia, unspecified (principal); Z53.21 Procedure and treatment not carried out due to patient leaving prior to being seen by health care provider

== ENCOUNTER 2021-09-14 03:13 | Emergency (ER) | payer MEDICARE ==
[2021-09-14 03:18] VITALS: BP 142/77
== END 2021-09-14 03:31 | disposition home or self-care (01) ==
LOC: EDH 03:13
DX: T16.2XXA Foreign body in left ear, initial encounter (principal); F10.20 Alcohol dependence, uncomplicated; I10 Essential (primary) hypertension; Z95.0 Presence of cardiac pacemaker; X58.XXXA Exposure to other specified factors, initial encounter; Y93.89 Activity, other specified; Y92.89 Other specified places as the place of occurrence of the external cause; Y99.8 Other external cause status
CPT/HCPCS: 69200

== ENCOUNTER 2021-09-29 23:30 | Emergency (ER) | payer MEDICARE ==
[~2021-09-29] VITALS: Ht 165.1 cm; Wt 56.2 kg
[2021-09-29 23:58] LABS: BASOPHILS % (AUTO) 0.8 % (0.0-5.0); HEMATOCRIT 38.3 % (42-54); LYMPHOCYTES % (AUTO) 26.4 % (21.0-51.0); MEAN CORPUSCULAR HEMOGLOBIN 27.1 pg (27.0-33.0); MEAN CORPUSCULAR HGB CONC 31.6 g/dL (32.0-36.0); MEAN CORPUSCULAR VOLUME 85.7 fL (79-99); NEUTROPHILS % (AUTO) 64.5 % (40.0-77.0); PLATELET COUNT (AUTO) 294 K/uL (130-400); RED BLOOD CELL COUNT(AUTO) 4.47 MIL/uL (4.50-6.20); RED CELL DISTRIBUTION WIDTH 17.1 % (11.0-15.5); WHITE BLOOD COUNT (AUTO) 7.2 K/uL (4.8-10.8)
[2021-09-30 00:04] LABS: CREATININE 0.9 mg/dL (0.5-1.5); POTASSIUM 3.5 mmol/L (3.5-5.1)
[2021-09-30 00:11] LABS: ALBUMIN 3.5 g/dL (3.5-5.0); BILIRUBIN,TOTAL 0.3 mg/dL (0.2-1.0); TOTAL PROTEIN, SERUM 7.9 g/dL (6.0-8.3)
[2021-09-30 01:06] LABS: ERYTHROCYTE SEDIMENTATION RATE 38 MM/HR (0-20)
[2021-09-30] MEDS ORDERED: ONDANSETRON ODT 4MG TAB ONE (01:06)
[2021-09-30] MEDS ORDERED: LIDOCAINE 5% TOPICAL PATCH TP ONE (06:30)
[2021-09-30 06:31] VITALS: BP 138/71
== END 2021-09-30 08:03 | disposition home or self-care (01) ==
LOC: EDH 23:30
DX: M54.2 Cervicalgia (principal); F10.229 Alcohol dependence with intoxication, unspecified; I10 Essential (primary) hypertension; Y90.6 Blood alcohol level of 120-199 mg/100 ml
CPT/HCPCS: 36415; 72125; 80053; 82550; 84484; 85025; 85651; 93005

== ENCOUNTER 2021-10-01 19:43 | Emergency (ER) | payer MEDICARE ==
[~2021-10-01] VITALS: Ht 162.6 cm; Wt 58.5 kg
[2021-10-01 20:30] VITALS: BP 135/89
== END 2021-10-01 20:33 | disposition left against medical advice (07) ==
LOC: EDH 19:43
DX: M54.9 Dorsalgia, unspecified (principal); Z53.21 Procedure and treatment not carried out due to patient leaving prior to being seen by health care provider

== ENCOUNTER 2021-10-02 01:13 | Emergency (ER) | payer MEDICARE ==
[~2021-10-02] VITALS: Ht 165.1 cm; Wt 51.7 kg
[2021-10-02 03:51] VITALS: BP 145/69
== END 2021-10-02 03:57 | disposition home or self-care (01) ==
LOC: EDH 01:13
DX: K59.00 Constipation, unspecified (principal); I10 Essential (primary) hypertension; Z79.899 Other long term (current) drug therapy; Z98.890 Other specified postprocedural states

== ENCOUNTER 2021-10-08 16:33 | Emergency (ER) | payer MEDICARE ==
[~2021-10-08] VITALS: Ht 165.1 cm; Wt 59.0 kg
[2021-10-08] MEDS ORDERED: NITROGLYCERIN 1GM OINT 1 INCH/1GM TD ONE (17:00)
[2021-10-08] MEDS ORDERED: ONDANSETRON 4MG INJ IVP ONE (17:00)
[2021-10-08] MEDS ORDERED: 0.9%NACL 1000ML 1,000 ML IV ONE (17:00)
[2021-10-08] MEDS ORDERED: ASPIRIN 325MG TAB PO ONE (17:00)
[2021-10-08 17:01] LABS: BASOPHILS % (AUTO) 0.9 % (0.0-5.0); EOSINOPHILS % (AUTO) 1.3 % (0.0-8.0); HEMATOCRIT 37.4 % (42-54); MEAN CORPUSCULAR HEMOGLOBIN 27.7 pg (27.0-33.0); MEAN CORPUSCULAR HGB CONC 31.6 g/dL (32.0-36.0); MEAN CORPUSCULAR VOLUME 87.8 fL (79-99); MONOCYTES % (AUTO) 6.3 % (3.0-13.0); NEUTROPHILS % (AUTO) 53.1 % (40.0-77.0); PLATELET COUNT (AUTO) 247 K/uL (130-400); RED BLOOD CELL COUNT(AUTO) 4.26 MIL/uL (4.50-6.20); RED CELL DISTRIBUTION WIDTH 16.7 % (11.0-15.5); WHITE BLOOD COUNT (AUTO) 5.4 K/uL (4.8-10.8)
[2021-10-08 17:18] LABS: CREATININE 0.9 mg/dL (0.5-1.5); POTASSIUM 3.7 mmol/L (3.5-5.1)
[2021-10-08 17:19] LABS: B-TYPE NATRIURETIC PEPTIDE 55 pg/mL (0-100)
[2021-10-08 17:23] LABS: ALBUMIN 3.2 g/dL (3.5-5.0); BILIRUBIN,TOTAL 0.3 mg/dL (0.2-1.0)
[2021-10-08 17:27] LABS: APPEARANCE,URINE Clear (CLEAR); BILIRUBIN,URINE Negative (NEGATIVE); COLOR,URINE Yellow (YELLOW); GLUCOSE, URINE (UA) Negative (NEGATIVE); KETONES,URINE Negative (NEGATIVE); LEUKOCYTE ESTERASE ,URINE Negative (NEGATIVE); NITRATE,URINE Negative (NEGATIVE); OCCULT BLOOD,URINE Negative (NEGATIVE); PH,URINE 5.5 (5.0-8.0); PROTEIN,URINE Negative (NEGATIVE); UROBILINOGEN,URINE 0.2 mg/dL (0.2-1.0)
== END 2021-10-08 17:57 | disposition left against medical advice (07) ==
LOC: EDH 16:33
DX: R07.89 Other chest pain (principal); R53.1 Weakness; E11.9 Type 2 diabetes mellitus without complications; I10 Essential (primary) hypertension; I25.10 Atherosclerotic heart disease of native coronary artery without angina pectoris; E86.0 Dehydration; Z98.890 Other specified postprocedural states; Z79.899 Other long term (current) drug therapy
CPT/HCPCS: 36415; 71045; 80053; 81003; 82550; 83880; 84484; 85025; 93005; 96360; 99285; J7030

== ENCOUNTER 2022-07-28 23:04 | Emergency (ER) | payer MEDICARE ==
[~2022-07-28] VITALS: Ht 165.1 cm; Wt 61.2 kg
[2022-07-29 08:28] VITALS: BP 165/84
== END 2022-07-29 08:31 | disposition home or self-care (01) ==
LOC: EDH 23:04
DX: S00.83XA Contusion of other part of head, initial encounter (principal); F10.129 Alcohol abuse with intoxication, unspecified; I10 Essential (primary) hypertension; E11.9 Type 2 diabetes mellitus without complications; Z79.899 Other long term (current) drug therapy; Z95.810 Presence of automatic (implantable) cardiac defibrillator; Z98.890 Other specified postprocedural states; W18.39XA Other fall on same level, initial encounter; Y93.55 Activity, bike riding; Y92.89 Other specified places as the place of occurrence of the external cause; Y99.8 Other external cause status
CPT/HCPCS: 70450; 72125

== ENCOUNTER 2023-04-29 02:38 | Emergency (ER) | payer OTHER, MEDICARE ==
[~2023-04-29] VITALS: Ht 157.5 cm; Wt 56.7 kg
[2023-04-29 03:41] LABS: BASOPHILS # (AUTO) 0.04 K/uL (0.00-0.20); BASOPHILS % (AUTO) 0.7 % (0.0-5.0); EOSINOPHILS # (AUTO) 0.04 K/uL (0.00-0.70); EOSINOPHILS % (AUTO) 0.7 % (0.0-8.0); HEMATOCRIT 44.6 % (42-54); IMMATURE GRANULOCYTE ABSOLUTE 0.02 K/uL (0-1); LYMPHOCYTES # (AUTO) 1.6 K/uL (1.0-4.8); LYMPHOCYTES % (AUTO) 27.3 % (21.0-51.0); MEAN CORPUSCULAR HEMOGLOBIN 30.4 pg (27.0-33.0); MEAN CORPUSCULAR HGB CONC 32.7 g/dL (32.0-36.0); MEAN CORPUSCULAR VOLUME 92.9 fL (79-99); MONOCYTES # (AUTO) 0.5 K/uL (0.1-1.0); MONOCYTES % (AUTO) 7.9 % (3.0-13.0); NEUTROPHILS # (AUTO) 3.6 K/uL (1.8-7.7); PLATELET COUNT (AUTO) 205 K/uL (130-400); RED CELL DISTRIBUTION WIDTH 14.6 % (11.0-15.5); WHITE BLOOD COUNT (AUTO) 5.7 K/uL (4.8-10.8)
[2023-04-29 03:55] LABS: CREATININE 0.7 mg/dL (0.5-1.5); POTASSIUM 4.2 mmol/L (3.5-5.1)
[2023-04-29 03:56] LABS: INR < 0.93 (0.85-1.15); PROTHROMBIN TIME 10.2 SEC (9.6-11.6)
[2023-04-29 03:58] LABS: PARTIAL THROMBOPLASTIN TIME 25.1 SEC (26.3-35.5)
[2023-04-29 04:00] VITALS: BP 149/76; PULSE 72; RESP 17; O2SAT 99
[2023-04-29 04:00] LABS: ALBUMIN 3.9 g/dL (3.5-5.0); BILIRUBIN,TOTAL 0.5 mg/dL (0.2-1.0); TOTAL PROTEIN, SERUM 8.2 g/dL (6.0-8.3)
[2023-04-29] MEDS ORDERED: IOHEXOL-350 75 ML VIAL IV ONE (04:08)
[2023-04-29 04:15] LABS: OCCULT BLOOD,GASTRIC FLUID POSITIVE (NEGATIVE); PH, GASTRIC 3
[2023-04-29 04:27] LABS: APPEARANCE,URINE CLEAR (CLEAR); BILIRUBIN,URINE NEGATIVE (NEGATIVE); COLOR,URINE COLORLESS (YELLOW); GLUCOSE, URINE (UA) NEGATIVE (NEGATIVE); KETONES,URINE NEGATIVE (NEGATIVE); LEUKOCYTE ESTERASE ,URINE NEGATIVE Leu/uL (NEGATIVE); NITRATE,URINE NEGATIVE (NEGATIVE); OCCULT BLOOD,URINE NEGATIVE (NEGATIVE); PROTEIN,URINE NEGATIVE (NEGATIVE); UROBILINOGEN,URINE 0.2 mg/dL (0.2-1.0)
[2023-04-29 04:31] LABS: ADD UA MICROSCOPIC NO
[2023-04-29 04:32] LABS: ALCOHOL, BLOOD 213 mg/dL (0-10); CREATINE KINASE, TOTAL 82 U/L (21-232)
== END 2023-04-29 04:32 | disposition left against medical advice (07) ==
LOC: EDH 02:38
DX: F10.129 Alcohol abuse with intoxication, unspecified (principal); K92.0 Hematemesis; E11.9 Type 2 diabetes mellitus without complications; I10 Essential (primary) hypertension; I25.10 Atherosclerotic heart disease of native coronary artery without angina pectoris; Z79.899 Other long term (current) drug therapy; Z95.810 Presence of automatic (implantable) cardiac defibrillator
CPT/HCPCS: 36415; 71045; 73562; 80053; 81003; 82271; 82550; 85025; 85610; 85730; 86850; 86900; 86901; 93005; Q9967

== ENCOUNTER 2023-12-15 22:58 | Emergency (ER) | payer MEDICARE, OTHER ==
[~2023-12-15] VITALS: Ht 165.1 cm; Wt 59.0 kg
[2023-12-15] MEDS: acetaMINOPHEN 325 MG TAB PO ONE (23:54)
[2023-12-16 02:53] VITALS: BP 148/71; PULSE 72; RESP 16; O2SAT 94
== END 2023-12-16 03:00 | disposition home or self-care (01) ==
LOC: EDH 22:58
DX: S80.02XA Contusion of left knee, initial encounter (principal); M17.12 Unilateral primary osteoarthritis, left knee; E11.9 Type 2 diabetes mellitus without complications; I10 Essential (primary) hypertension; I25.10 Atherosclerotic heart disease of native coronary artery without angina pectoris; F10.20 Alcohol dependence, uncomplicated; Z79.899 Other long term (current) drug therapy; Z95.810 Presence of automatic (implantable) cardiac defibrillator; Z98.890 Other specified postprocedural states; X58.XXXA Exposure to other specified factors, initial encounter; Y93.89 Activity, other specified; Y92.89 Other specified places as the place of occurrence of the external cause; Y99.8 Other external cause status
CPT/HCPCS: 73564

== ENCOUNTER 2023-12-29 07:25 | Emergency (ER) | payer OTHER ==
[~2023-12-29] VITALS: Ht 165.1 cm; Wt 59.0 kg
[2023-12-29 07:33] VITALS: TEMP 98.1
[2023-12-29 07:59] LABS: RAPID GROUP A STREP negative (NEGATIVE)
[2023-12-29 08:01] LABS: SARS-CoV-2, RNA, NAAT NEGATIVE SARS CoV-2 (NEGATIVE)
[2023-12-29 08:10] LABS: INFLUENZA TYPE A Negative For Type A (NEGATIVE); INFLUENZA TYPE B Negative For Type B (NEGATIVE)
[2023-12-29] MEDS ORDERED: BENZ-39 PO (08:54)
[2023-12-29] MEDS: BENZONATATE 100 MG CAPSULE PO ONE (09:03)
[2023-12-29] MEDS: acetaMINOPHEN 325 MG TAB PO ONE (09:03)
[2023-12-29] MEDS: hydrOXYzine 10 MG TABLET PO SCH (09:04)
[2023-12-29 10:44] VITALS: BP 182/95; PULSE 60; RESP 16; O2SAT 100
== END 2023-12-29 10:47 | disposition home or self-care (01) ==
LOC: EDH 07:25
DX: J04.0 Acute laryngitis (principal); B97.89 Other viral agents as the cause of diseases classified elsewhere; E11.9 Type 2 diabetes mellitus without complications; I10 Essential (primary) hypertension; I25.10 Atherosclerotic heart disease of native coronary artery without angina pectoris; Z20.822 Contact with and (suspected) exposure to COVID-19; Z79.899 Other long term (current) drug therapy; Z95.810 Presence of automatic (implantable) cardiac defibrillator; Z98.890 Other specified postprocedural states
CPT/HCPCS: 87635; 87804; 87880

== ENCOUNTER 2025-03-18 19:50 | Emergency (ER) | payer OTHER, MEDICARE ==
[~2025-03-18] VITALS: Ht 165.1 cm; Wt 48.5 kg
[~2025-03-18 19:50] MED LIST changes: +BENZ-39 PO
[2025-03-18 20:19] LABS: IMMATURE GRANULOCYTE ABSOLUTE 0.02 K/uL (0-1); NUCLEATED RED BLOOD CELLS 0.0 % (0.0-0.19); PLATELET COUNT (AUTO) 226 K/uL (130-400); RED BLOOD CELL COUNT(AUTO) 4.51 MIL/uL (4.50-6.20); RED CELL DISTRIBUTION WIDTH 13.3 % (11.0-15.5); WHITE BLOOD COUNT (AUTO) 6.8 K/uL (4.8-10.8)
[2025-03-18 20:27] LABS: CREATININE 1.0 mg/dL (0.5-1.3); GLOMERULAR FILTR. RATE CALC 78.0 mL/min (>90); GLUCOSE,RANDOM 124.0 mg/dL (70-105); SODIUM SERUM 138.0 mmol/L (136-145); UREA NITROGEN, BLOOD 15.0 mg/dL (7-18)
[2025-03-18] MEDS: LACTATED RINGERS 1000ML IV STA ×2 (20:41→20:44)
--- NOTE | 2025-03-18 20:48 | ERN ---
General Chief Complaint: Hypertension Stated Complaint: C/O HIGH B/P WITH DIZZINESS Time Seen by MD: 19:55 History of Present Illness Initial Comments 74-year-old male with past medical history of occasional alcohol abuse and dementia is admitted because of elevated blood pressure and also lightheadedness. Allergies: Coded Allergies: No Known Drug Allergies (Verified Allergy, Unknown, 12/12/15) Home Meds Active Scripts Benzonatate (Tessalon Perles) 100 Mg Cap, 100 MG PO TIDP PRN for COUGH, #30 CAP 0 Refills Prov:CONNER JAQUEZ MD 12/29/23 Pantoprazole Sodium (Protonix) 20 Mg Tablet.dr, 20 MG PO DAILY for 30 Days, #30 TAB 0 Refills Prov:CONNER JAQUEZ MD 01/20/21 Fluticasone Propionate (Flonase Nasal [place]) 50 Mcg/[place], 50 MCG NASAL BID for 7 Days, #1 SPRAY 0 Refills Prov:MICHAEL PENNY MD 01/06/21 Past Medical History Past Medical History: Bronchitis, Hypertension Medical History Other: ALCOHOL DEPENDENCE Past Surgical History: None Surgical History Other: LEFT KNEE Family History Family History: Negative Social History Social History: ETOH, Other ROS Dictation Given the patient's dementia I could not get an accurate review of systems. He did state that his urine is dark in color; however, family member who is present says that with his dementia he is not reliable. Physical Exam General Appearance: (+) no apparent distress General Appearance comment Cachectic Orientation: (+) alert Head/Face Trauma: No Eye: bilateral eye normal inspection, bilateral eye PERRL, bilateral eye EOMI Ear, Nose, Throat: (+) hearing grossly normal, (+) normal ENT inspection Neck: (+) normal inspection, (+) supple Respiratory: (+) chest non-tender, (+) lungs clear Heart: (+) regular Heart Comment Patient has a dual pacer. Vascular Comment Patient has a extremely diminished peripheral pulses. I am concerned about severe hypovolemia. I performed an ultrasound of the patient's abdomen and his inferior vena cava is completely collapsed . Gastrointestinal: (+) soft, (+) non-tender, (+) bowel sound present Results Laboratory and Microbiology Lab and Micro Result Laboratory Tests Test 03/18/25 20:02 03/18/25 21:57 White Blood Count 6.8 K/uL (4.8-10.8) Red Blood Count 4.51 MIL/uL (4.50-6.20) Hemoglobin 13.8 g/dL (14.0-18.0) L Hematocrit 42.3 % (42-54) Mean Corpuscular Volume 93.8 fL (79-99) Mean Corpuscular Hemoglobin 30.6 pg (27.0-33.0) Mean Corpuscular Hemoglobin Concent 32.6 g/dL (32.0-36.0) Red Cell Distribution Width 13.3 % (11.0-15.5) Platelet Count 226 K/uL (130-400) Mean Platelet Volume 10.1 fL (7.5-10.5) Immature Granulocyte % (Auto) 0.3 % (0-1) Neutrophils (%) (Auto) 68.7 % (40.0-77.0) Lymphocytes (%) (Auto) 23.7 % (21.0-51.0) Monocytes (%) (Auto) 5.9 % (3.0-13.0) Eosinophils (%) (Auto) 1.0 % (0.0-8.0) Basophils (%) (Auto) 0.4 % (0.0-5.0) Neutrophils # (Auto) 4.7 K/uL (1.8-7.7) Lymphocytes # (Auto) 1.6 K/uL (1.0-4.8) Monocytes # (Auto) 0.4 K/uL (0.1-1.0) Eosinophils # (Auto) 0.07 K/uL (0.00-0.70) Basophils # (Auto) 0.03 K/uL (0.00-0.20) Absolute Immature Granulocyte (auto 0.02 K/uL (0-1) Nucleated Red Blood Cells 0.0 % (0.0-0.19) Sodium Level 138 mmol/L (136-145) Potassium Level 3.9 mmol/L (3.5-5.1) Chloride Level 101 mmol/L (101-111) Carbon Dioxide Level 29 mmol/L (21-32) Blood Urea Nitrogen 15 mg/dL (7-18) Creatinine 1.0 mg/dL (0.5-1.3) Glomerular Filtration Rate Calc 78 mL/min (>90) Random Glucose 124 mg/dL (70-105) H Lactic Acid Level 2.9 mmol/L (0.8-2.5) H Total Calcium 9.1 mg/dL (8.5-10.1) Phosphorus Level 3.1 mg/dL (2.5-4.9) Magnesium Level 2.00 mg/dL (1.80-2.40) Total Bilirubin 0.6 mg/dL (0.2-1.0) Direct Bilirubin 0.1 mg/dL (0.0-0.3) Aspartate Amino Transf (AST/SGOT) 21 U/L (10-37) Alanine Aminotransferase (ALT/SGPT) 17 U/L (12-78) Alkaline Phosphatase 72 U/L (50-136) Troponin I High Sensitivity 9 ng/L (4-75) Total Protein 8.1 g/dL (6.0-8.3) Albumin 3.9 g/dL (3.5-5.0) Urine Color COLORLESS (YELLOW) Urine Appearance CLEAR (CLEAR) Urine pH 6.0 (5.0-8.0) Urine Specific [place] 1.008 (1.001-1.031) Urine Protein NEGATIVE mg/dL (NEGATIVE) Urine Glucose (UA) NEGATIVE mg/dL (NEGATIVE) Urine Ketones NEGATIVE mg/dL (NEGATIVE) Urine Occult Blood NEGATIVE (NEGATIVE) Urine Nitrate NEGATIVE (NEGATIVE) Urine Bilirubin NEGATIVE mg/dL (NEGATIVE) Urine Urobilinogen 0.2 mg/dL (0.2-1.0) Urine Leukocyte Esterase NEGATIVE [place]/uL MDM Patient's clinical history and physical exam are consistent with severe d ehydration which can cause a paradoxical hyper tension. I have ordered the usual labs and I will include phosphate lactate and magnesium. In addition I will bolused the patient 2 L of LR. I provided for some low-dose hydralazine for his blood pressure. His magnesium and phosphate are normal as are his other laboratory studies. Patient's blood pressure has improved with the IV hydration plus the hydralazine. His orthostatics are negative. I have given him a dose of an clonidine and discharged him from the hospital. He needs to follow up with his primary care physician and start some regularly scheduled blood pressure medications. ED Course Orders Procedure Category Date Status Time 12 Lead Ekg Tracing- EKG 03/18/25 Logged Technical 20:09 Cbc With Differential LAB 03/18/25 Complete 20:11 Basic Metabolic Panel LAB 03/18/25 Complete 20:11 Troponin I High LAB 03/18/25 Complete Sensitivity 20:11 Lactic Acid LAB 03/18/25 Complete 20:22 Urinalysis Profile LAB 03/18/25 Complete 20:22 Lactated Ringers PHA 03/18/25 Complete 1000ml (Lactated 20:22 Hepatic Function Panel LAB 03/18/25 Complete 20:02 Magnesium LAB 03/18/25 Complete 20:02 Phosphorus LAB 03/18/25 Complete 20:02 Lactated Ringers PHA 03/18/25 Complete 1000ml (Lactated 20:41 Orthostatic Vital CPOE 03/18/25 Transmitted Signs 22:11 Hydralazine 20mg Inj PHA 03/18/25 Logged (Apresoline 20mg In 23:00 Current Medications Medications (Trade) Dose Ordered Sig/Jay Jay Route PRN Reason Start Time Stop Time Status Last Admin Dose Admin Hydralazine HCl (APRESOLine 20MG INJ) 20 mg ONCE ONCE IV 03/18/25 23:00 03/18/25 23:01 UNV Lactated Ringer's (Lactated Ringers 1000ml) 1,000 ml BOLUS STAT IV 03/18/25 20:22 03/18/25 20:25 DC 03/18/25 20:44 Lactated Ringer's (Lactated Ringers 1000ml) 1,000 ml BOLUS STAT IV 03/18/25 20:41 03/18/25 20:43 DC Vital Signs Date Time Temp Pulse Resp B/P (MAP) Pulse Ox O2 Delivery O2 Flow Rate FiO2 03/18/25 22:30 60 18 168/82 100 Room Air* 0 21 03/18/25 22:28 60 18 171/85 99 Room Air* 0 21 03/18/25 22:26 60 18 164/80 99 Room Air* 0 21 03/18/25 21:44 60 18 145/74 100 Room Air* 0 21 03/18/25 20:45 60 14 143/78 100 Room Air* 0 21 03/18/25 20:06 98.2 60 14 197/84 100 Room Air* 0 21 03/18/25 19:52 98.2 66 20 184/89 98 Room Air DX & DISP Disposition: Discharge Departure Impression: Primary Impression: Hypertension Additional Impression: Hypovolemia Condition: Stable Additional Instructions: Your blood pressure has responded to two medications. You need to follow-up with your primary care physician to start some regularly scheduled blood pressure medications. You were severely dehydrated when you arrived. You need to drink more water, drink enough water so that your urine runs clear once a day. Family has told me that you are demented and the two most common causes of associated with dementia are pneumonia from poor swallowing and aspiration or dehydration from inadequate fluid intake. Please follow-up with your primary care physician for nutrition plan. Referrals: MALIA PRESTON M.D. (PCP) DAVID LAZO MD Mar 18, 2025 20:48
[2025-03-18 20:53] LABS: ASPARTATE AMINOTRANSFERASE 21.0 U/L (10-37); PHOSPHORUS 3.1 mg/dL (2.5-4.9); TOTAL PROTEIN, SERUM 8.1 g/dL (6.0-8.3)
[2025-03-18 22:04] LABS: APPEARANCE,URINE CLEAR (CLEAR); GLUCOSE, URINE (UA) NEGATIVE (NEGATIVE); LEUKOCYTE ESTERASE ,URINE NEGATIVE Leu/uL (NEGATIVE); NITRATE,URINE NEGATIVE (NEGATIVE); OCCULT BLOOD,URINE NEGATIVE (NEGATIVE)
[2025-03-18 22:05] LABS: ADD UA MICROSCOPIC NO
[2025-03-18 23:43] VITALS: BP 122/68; PULSE 60; RESP 16; TEMP 98.4; O2SAT 99
--- NOTE | 2025-03-19 04:49 | EKG ---
[facility] Test Date: 2025-03-18 Test Time: 19:55:39 Pat Name: GADIEL ANN Department: [facility] Room: Gender: M Medicaid Specialist: [id number] : 1950 Requested By: DAVID LAZO Order Number: [id number] Reading MD: Nora Estrada Measurements Intervals [place] Rate: 63 P: 17 FL: 183 QRS: -80 QRSD: 166 T: 91 QT: 463 QTc: 475 Interpretive Statements Atrial-ventricular dual-paced complexes Compared to ECG 04/29/2023 03:31:03 Sinus rhythm no longer present First degree AV block no longer present Left bundle-branch block no longer present Intraventricular conduction delay no longer present ST (T wave) deviation no longer present Electronically Signed On 03-19-2025 08:47:30 SANDER [employer] PENCILS by Nora Estrada Please click the below link to view image of tracing.
== END 2025-03-18 23:44 | disposition home or self-care (01) ==
LOC: EDH 19:50
DX: I10 Essential (primary) hypertension (principal); E86.1 Hypovolemia; R42 Dizziness and giddiness; F03.90 Unspecified dementia, unspecified severity, without behavioral disturbance, psychotic disturbance, mood disturbance, and anxiety; F10.20 Alcohol dependence, uncomplicated; Z79.899 Other long term (current) drug therapy
CPT/HCPCS: 99284; 96374; 96361; 80076; 83735; 84100; 84484; 80048; 85025; 83605; 81003; 36415; 93005; J7120; J0360

== ENCOUNTER 2025-04-27 19:15 | Emergency (ER) | payer OTHER, MEDICARE ==
[~2025-04-27] VITALS: Ht 170.2 cm; Wt 59.0 kg
--- NOTE | 2025-04-27 19:25 | NUR ---
PT PLACED IN ED 18. PT CARE ASSUMED AT THIS TIME.
--- NOTE | 2025-04-27 19:50 | NUR ---
PATIENT REFUSED ALL CARE. PATIENT DID NOT WANT CT SCAN DONE. PRIMARY NURSE NOTIFIED. ER PHYSICIAN NOTIFIED
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
--- NOTE | 2025-04-27 19:54 | NUR ---
PATIENT SIGNED AMA FORM. ER PHYSICIAN AWARE. PATIENT AWARE OF RISKS ASSOCIATED WITH LEAVING AMA
--- NOTE | 2025-04-27 19:54 | NUR ---
PT REQUESTS TO LEAVE AMA AT THIS TIME. PT IS A&OX4 WITH FULL DECISIONAL CAPACITY. THE PATIENT REPORTS THAT HE UNDERSTANDS HIS CONDITION AND THE RISKS ASSOCIATED WITH LEAVING AMA, INCLUDING BUT NOT LIMITED TO PERAMANENT DISABILITY OR AND HAS HAD THE OPPORTUNITY TO ASK QUESTIONS ABOUT THEIR MEDICAL CONDITION. THE PATIENT HAS BEEN INFORMED TO SEEK MEDICAL HELP IN THE EVENT OF AN EMERGENCY. PT VERBALIZED UNDERSTANDING OF THE ABOVE STATEMENTS. AMA FORM SIGNED AND PLACED IN PT CHART, WITNESSED BY (PRIMARY NURSE) EDWARD DENNIS AND SECONDARY NURSE CHI RN (SECONDARY NURSE). VS 98.1 TEMP 62 HR 17 RR 100% SaO2 RA 160/78
[2025-04-27 19:55] VITALS: BP 160/98; PULSE 62; RESP 17; TEMP 98.1; O2SAT 100
== END 2025-04-27 19:54 | disposition left against medical advice (07) ==
LOC: EDH 19:15
DX: M54.6 Pain in thoracic spine (principal); I10 Essential (primary) hypertension; M19.90 Unspecified osteoarthritis, unspecified site; Z79.899 Other long term (current) drug therapy; Z95.0 Presence of cardiac pacemaker; V19.9XXA Pedal cyclist (driver) (passenger) injured in unspecified traffic accident, initial encounter; Y93.I9 Activity, other involving external motion; Y92.488 Other paved roadways as the place of occurrence of the external cause; Y99.8 Other external cause status
CPT/HCPCS: 99282